=== PATIENT | male | born 1985 | race Caucasian/White ===

== ENCOUNTER 2019-11-25 17:23 | Emergency (ER) | payer BC, SELFPAY ==
[2019-11-25 17:29] VITALS: BP 134/71; PULSE 95; RESP 18; TEMP 37.7; O2SAT 98
--- NOTE | 2019-11-25 18:15 | ED.GENADULT ---
HPI - General Adult General Chief complaint: Skin/Abscess/Foreign Body Stated complaint: CHEMICAL MONTEIRO TO LEGS Time Seen by Provider: 11/25/19 18:11 Source: patient Mode of arrival: ambulatory Limitations: no limitations History of Present Illness HPI narrative: 34-year-old male patient [facility] with complaints of monteiro to bilateral calves. Patient states that Friday he was at work and working with concrete. Patient states that side of the concrete got on the tops of his boots and thinks it got into his shoe. Patient states that when he got home he noticed some monteiro to the legs from the chemicals. Patient states he has been using vinegar and water to clean the wounds. Patient states he has been keeping Vaseline on them and keeping them covered and wrapped with Sedrick wrap. Patient denies any numbness or tingling to the toes or feet. Denies any fevers. Patient states he has noticed a little bit of swelling to bilateral lower extremities. Related Data Allergies Allergy/AdvReac Type Severity Reaction Status Date / Time No Known Allergies Allergy Unverified 03/29/17 03:19 Review of Systems Review of Systems: Narrative: CONSTITUTIONAL: Denies fever, chills, or sweats. EYES: Denies visual changes, redness, or discharge. ENT: Denies rhinorrhea, congestion, sore throat, or otalgia. CARDIOVASCULAR: Denies chest pain, palpitations, or edema. RESPIRATORY: Denies cough or dyspnea. GASTROINTESTINAL: Denies abdominal pain, nausea, vomiting, or diarrhea. GENITOURINARY: Denies dysuria or hematuria. SKIN: Denies rash or itching. Positive mnoteiro to bilateral lower extremities MUSCULOSKELETAL: Denies back pain, joint pain, or myalgia. NEUROLOGIC: Denies headache, numbness, or weakness. PSYCHIATRIC: Denies anxiety or depression. PMFSH Social History Social History Alcohol intake: current Comments At the time of my signature I agree with nursing past medical history, surgical, social, and family history. There is no relevant family history pertinent to the presenting complaint. Exam Narrative: Exam Narrative: GENERAL: Well-appearing, well-nourished, and in no acute distress. HEAD: Normocephalic, atraumatic. EYES: PERRLA and EOMI. ENT: Nares clear, no rhinorrhea or epistaxis. Mucous membranes moist. NECK: Supple. No lymphadenopathy CHEST: Clear to auscultation. No respiratory distress. HEART: Regular rate and rhythm. No murmur heard. Normal peripheral pulses. ABDOMEN: Soft, nontender, nondistended, normal active bowel sounds. EXTREMITIES: Normal range of motion. No edema. SKIN: Warm, dry, no rash. Patient has superficial chemical monteiro noted to bilateral medial calves. The one on the right measuring approximately 10 cm in length. There is some green center to the area. The one on the right measuring approximately 12 cm in length with a green area in the center. No open areas or discharge noted. NEURO: No focal deficits. Alert and oriented x3. Course Vital Signs Vital signs: Vital Signs Temperature 37.7 C H 11/25/19 17:29 Pulse Rate 95 11/25/19 17:29 Respiratory Rate 18 11/25/19 17:29 Blood Pressure 134/71 11/25/19 17:29 Pulse Oximetry 98 11/25/19 17:29 Temperature 37.7 C H 11/25/19 17:29 Pulse Rate 95 11/25/19 17:29 Respiratory Rate 18 11/25/19 17:29 Blood Pressure 134/71 11/25/19 17:29 Pulse Oximetry 98 11/25/19 17:29 Vital signs reviewed. The patient has been informed that they may have pre-hypertension or Hypertension based on a BP reading in the department. I recommend that the patient call the primary care provider listed on their discharge instructions or a physician of their choice this week to arrange follow up for further evaluation of possible pre-hypertension or Hypertension Medical Decision Making Differential Diagnosis Differential Diagnosis: Differential diagnosis: Abscess, cellulitis, hidradenitis, lacer
[2019-11-25] MEDS: SILVER SULFADIAZINE 1% CR 50 GM JAR (*BKC) 1 APPLIC TOPICAL (18:28)
[2019-11-25 18:46] VITALS: BP 117/62; PULSE 86; RESP 16; TEMP 36.3; O2SAT 99
== END 2019-11-25 18:47 | disposition home or self-care (01) ==
PROVIDERS: Emergency Provider Nurse Practitioner Family
DX: T24.532A Corrosion of first degree of left lower leg, initial encounter (principal); T24.531A Corrosion of first degree of right lower leg, initial encounter; T32.0 Corrosions involving less than 10% of body surface; R03.0 Elevated blood-pressure reading, without diagnosis of hypertension; T65.891A Toxic effect of other specified substances, accidental (unintentional), initial encounter
CPT/HCPCS: 16000; 99283; A9270

== ENCOUNTER 2021-06-21 16:10 | Emergency (ER) | payer BC, SELFPAY ==
--- NOTE | ~2021-06-21 | XR_ITS ---
EXAMINATION: XR chest 2V DATE: 06/21/2021 16:25 INDICATION: Chest pain. Heart palpitations. Shortness of breath. TECHNIQUE: Frontal and lateral views of the chest were obtained. COMPARISON: CT abdomen and pelvis 03/29/2017 FINDINGS: There are mild airspace opacities in the lower lung zones. No pleural effusion or pneumotho rax. The heart size is normal. There is mild chronic anterior wedging of multiple vertebral bodies. IMPRESSION: 1. Mild airspace opacities in the lower lung zones, consistent with atelectasis versus pneumonia. Reviewed, dictated and finalized at location A. N [employer]
[2021-06-21 16:16] VITALS: BP 137/66; PULSE 98; RESP 18; TEMP 37.1; O2SAT 100
--- NOTE | 2021-06-21 16:16 | ECG_ITS ---
Measurements Intervals [place] Rate: 96 P: 66 TN: 138 QRS: 55 QRSD: 101 T: 61 QT: 334 QTc: 423 Interpretive Statements SINUS RHYTHM NORMAL ECG Electronically Signed On 06-21-2021 16:22:29 [facility] [employer] by Adam Tse D.O.
[2021-06-21 16:21] VITALS: PULSE 97
--- NOTE | 2021-06-21 16:39 | ED.CHESTPAIN ---
HPI - Chest Pain General Chief Complaint: Chest Pain Stated Complaint: chest pain, breathing probs. Time Seen by Provider: 06/21/21 16:16 Source: patient Mode of arrival: ambulatory Limitations: no limitations History of Present Illness HPI narrative: Patient is a 28-year-old male complaining of chest pain, tightness, left chest, 6 out of 10 accompanied by palpitations, shortness of breath and dizziness that started prior to arrival. Patient states that he is feeling anxious. Patient denies any abdominal pain, nausea, vomiting, diaphoresis, fever or chills Related Data Allergies Allergy/AdvReac Type Severity Reaction Status Date / Time No Known Allergies Allergy Unverified 06/21/21 16:20 Review of Systems Review of Systems: All systems reviewed & are unremarkable except as noted in HPI and below Constitutional: Constitutional: Denies body ache(s), Denies chills, Denies excessive sweating, Denies fatigue, Denies fever(s), Denies headache(s), Denies lethargy, Denies malaise, Denies weakness and Denies weight loss Eyes: Eyes: Denies blurry vision, Denies change in vision and Denies loss of vision ENT: Denies dizziness, Denies ear discharge, Denies headache(s), Denies lip swelling, Denies epistaxis, Denies nasal congestion, Denies neck pain, Denies throat swelling and Denies tongue swelling Cardiovascular: Cardiovascular: Denies chest pain with activity, Denies diaphoresis, Denies rapid heart rate, Denies edema, Denies irregular heart rhythm, Denies lightheadedness, Denies palpitations and Denies dyspnea on exertion Respiratory: Respiratory: Denies chest congestion, Denies cough, Denies hemoptysis and Denies dyspnea on exertion Gastrointestinal: Gastrointestinal: Denies abdominal pain, Denies melena, Denies hematochezia, Denies diarrhea, Denies vomiting and Denies hematemesis Musculoskeletal: Musculoskeletal: Denies abnormal gait, Denies deformity, Denies joint swelling, Denies limited range of motion, Denies neck pain and Denies numbness Neurologic: Denies Abnormal speech present, Denies abnormal gait, Denies confusion, Denies headache(s), Denies focal weakness, Denies loss of vision, Denies numbness, Denies Other visual disturbances, Denies Sensory deficit (Neuro) and Denies weakness Psychiatric: Psychiatric: Denies confusion, Denies depression, Denies auditory hallucinations, Denies homicidal ideation and Denies suicidal ideation Endocrine: Endocrine: Denies cold intolerance, Denies excessive sweating, Denies fatigue, Denies heat intolerance and Denies palpitations Hematologic/Lymphatic: Hematologic/Lymphatic: Denies easy bleeding and Denies easy bruising Allergic/Immunologic: Allergic/Immunologic: Denies lip swelling, Denies throat swelling and Denies tongue swelling [facility] Social History Social History Alcohol intake: current Comments Past medical history: None Family history: Negative for AR or coronary artery disease Social history: Non-smoker, occasional EtOH use, no drug use Exam Const: General: cooperative, healthy appearing, comfortable, no acute distress, well developed, alert and awake; No confusion Orientation/consciousness: oriented to person, oriented to place, oriented to time, patient oriented x3 and No confusion Limitations: no limitations HENMT: Head: normal to inspection, normocephalic and atraumatic Ears: hearing grossly normal bilaterally, TM normal on the right and TM normal on the left General nose exam: Normal external nose present, Normal nares present and No nasal discharge present Face and sinus: normal facial exam Mouth: Yes Normal oral and palatal mucosa present, Yes lip normal, Yes tongue normal and Yes oropharynx normal Throat: posterior oropharynx normal, tonsils normal and uvula midline Eyes: General: appearance normal, both eyes and all related structures Pupils: Equal, round and reactive pupils present EOM: EOMs intact bilaterally Ne
[2021-06-21 16:53] LABS: Basophils Absolute Auto 0.1 K/mm3 (0.0-0.1); Basophils Percent Auto 0.7 % (0.2-1.2); Eosinophils Absolute Auto 0.1 K/mm3 (0-0.3); Hematocrit 42.2 % (42.0-52.0); Hemoglobin 13.9 g/dL (14.0-18.0); Immature Granulocyte Absolute 0.03 K/mm3 (0.00-0.031); Immature Granulocyte Percent A 0.4 % (0-0.5); Lymphocytes Absolute Auto 0.25 K/mm3 (0.9-3.2); Lymphocytes Percent Auto 3.4 % (18.3-44.2); Mean Corpuscular HGB Conc 32.9 g/dl (32-36); Mean Corpuscular Hemoglobin 28.3 pg (26-34); Mean Corpuscular Volume 85.8 fl (80-100); Mean Platelet Volume 9.9 fl (7.4-10.4); Monocytes Percent Auto 13.5 % (2.6-8.5); Neutrophils Absolute Auto 5.9 K/mm3 (1.3-6.7); Platelet Count Result 196 k/mm3 (150-375); Red Blood Count 4.92 M/mm3 (4.6-6.20); Red Cell Distribution Width 13.2 % (11.5-14.5); White Blood Count 7.3 K/mm3 (4.5-10.0)
[2021-06-21] MEDS: ONDANSETRON INJ 4 MG/2 ML VIAL IV PUSH (16:55)
[2021-06-21 17:03] LABS: Alanine Aminotransferase 24 U/L (4-50); Albumin Level 4.8 g/dL (3.5-5.1); Alkaline Phosphatase 51 U/L (38-126); Anion Gap 11 mmol/L (8-16); Aspartate Amino Transferase 29 U/L (17-59); Bilirubin,Total 0.3 mg/dL (0.2-1.3); Blood Urea Nitrogen 13 mg/dL (9-20); Calcium 9.9 mg/dL (8.4-10.2); Carbon Dioxide 24 mmol/L (22-30); Chloride 103 mmol/L (98-107); Estimated CRCL calculation 101 ml/min; Estimated Glomerular Filt Rate > 60; Glucose 135 mg/dL (65-110); Lipase 238 U/L (23-300); Potassium 3.6 mmol/L (3.4-5.0); Sodium 138 mmol/L (137-145)
[2021-06-21 17:09] LABS: Prothrombin Time 13.4 Seconds (11.1-14.7)
[2021-06-21 17:10] LABS: Partial Thromboplastin Time 30.1 SECONDS (22.3-36.8)
[2021-06-21 17:12] LABS: D Dimer 0.28 ug/mL (<0.48)
[2021-06-21 17:15] LABS: Troponin I < 0.012 ng/mL (0.000-0.034)
[2021-06-21] MEDS: ASPIRIN 81 MG CHEWABLE TABLET 324 MG PO (17:49)
[2021-06-21 18:16] VITALS: BP 110/61; PULSE 99; RESP 16; O2SAT 99
[2021-06-21] MEDS: KETOROLAC 30 MG/ML VIAL (*BKC) IV PUSH (18:16)
[2021-06-21] MEDS: HYDROcodone/acetaminophen (*CRX) 5-325 MG TABLET 1 TAB PO (18:16)
[2021-06-21] MEDS: LORazepam (*CRX) 0.5 MG TABLET PO (18:33)
[2021-06-21 19:10] LABS: Add Urine Microscopic? YES; Appearance Urine Cloudy (Clear); Bacteria Urine Trace /hpf; Bilirubin Urine Negative (Negative); Blood Urine Negative (Negative); Color Urine Yellow (Yellow); Glucose Urine UA Negative (Negative); Ketones Urine Negative (Negative); Leukocyte Esterase Ur Negative LEU/UL (Negative); Mucus Urine Rare /lpf; Nitrate Urine Negative (Negative); Protein Urine Negative (Negative); Specific Grav Ur 1.021 (1.001-1.035); Squamous Epithelial Cell Urine Rare /hpf (Few); Urobilinogen Urine Negative mg/dL (<2.0)
[2021-06-21 19:58] LABS: Troponin I < 0.012 ng/mL (0.000-0.034)
[2021-06-21 20:10] VITALS: BP 129/84; PULSE 84; RESP 16; O2SAT 98
== END 2021-06-21 20:53 | disposition home or self-care (01) ==
PROVIDERS: Emergency Medicine; Emergency Provider Emergency Medicine
DX: R07.89 Other chest pain (principal)
CPT/HCPCS: 36415; 71046; 80053; 81001; 83690; 84484; 85025; 85380; 85610; 85730; 93005; 96374; 96375; 99284; A9270; J1885; J2405

== ENCOUNTER 2023-10-19 18:59 | Emergency (ER) | payer BC, SELFPAY ==
--- NOTE | ~2023-10-19 | CT_ITS ---
EXAMINATION: CTA chest PE abdomen pel DATE: 10/19/2023 19:55 INDICATION: Right-sided chest pain and abdominal pain TECHNIQUE: Computed tomography (CT) pulmonary angiogram of the chest was performed with 100 mL Omnipa que-350 intravenous contrast. Additional 3D reconstructions utilizing coronal maximum intensity proje ction (MIP) were performed. CT of the abdomen and pelvis was performed with intravenous contrast util izing the same contrast bolus following a short delay. Automated exposure control and iterative recon struction technique were employed. The dose-length product was 696.35 mGy-cm. COMPARISON: None FINDINGS: Chest: No pulmonary embolism. Lungs are clear with no pneumonia, pulmonary edema or other pulmonary infiltra pepper. No pleural effusion or pneumothorax. Heart size is normal. Thoracic aorta is normal in caliber w ith no dissection. Bilateral gynecomastia. Moderate thoracic spondylosis with anterior wedging and Sc hmorl's nodes involving multiple vertebral bodies in the mid to lower thoracic spine. Abdomen/pelvis: Numerous hypoenhancing nodules scattered throughout the liver suspicious for metastatic disease. Sple en, pancreas, bilateral adrenal glands and kidneys are normal. Bowels including the appendix are norm al. Bladder is normal. No free intraperitoneal gas or fluid. No pathologically enlarged abdominal or pelvic lymphadenopathy. Mild lumbar spondylosis. IMPRESSION: 1. No pulmonary embolism or other acute cardiopulmonary disease. 2. Numerous hypoenhancing masses scattered throughout the liver concerning for metastatic disease. Co nsider ultrasound-guided biopsy for pathologic correlation. Reviewed, dictated and finalized at location A. IMPRESSION: 1. No pulmonary embolism or other acute cardiopulmonary disease. 2. Numerous hypoenhancing masses scattered throughout the liver concerning for metastatic disease. Consider ultrasound-guided biopsy for pathologic correlatio n.
[2023-10-19 19:05] VITALS: BP 150/90; PULSE 74; RESP 18; TEMP 36.7; O2SAT 100
--- NOTE | 2023-10-19 19:10 | ECG_ITS ---
SEE SCANNED COPY FOR CONFIRMED REPORT MTDD
[2023-10-19 19:12] LABS: Basophils Absolute Auto 0.1 K/mm3 (0.0-0.1); Basophils Percent Auto 0.4 % (0.2-1.2); Eosinophils Absolute Auto 0.1 K/mm3 (0-0.3); Eosinophils Percent Auto 1.2 % (0-4.4); Hematocrit 42.3 % (42.0-52.0); Hemoglobin 13.9 g/dL (14.0-18.0); Immature Granulocyte Absolute 0.04 K/mm3 (0.00-0.031); Immature Granulocyte Percent A 0.3 % (0-0.5); Lymphocytes Absolute Auto 1.29 K/mm3 (0.9-3.2); Lymphocytes Percent Auto 11.2 % (18.3-44.2); Mean Corpuscular HGB Conc 32.9 g/dl (32-36); Mean Corpuscular Volume 88.1 fl (80-100); Mean Platelet Volume 9.6 fl (7.4-10.4); Monocytes Absolute Auto 1.5 K/mm3 (0.1-0.6); Monocytes Percent Auto 13.3 % (2.6-8.5); Neutrophils Absolute Auto 8.5 K/mm3 (1.3-6.7); Neutrophils Percent Auto 73.6 % (45.5-73.1); Platelet Count Result 314 k/mm3 (150-375); Red Cell Distribution Width 12.7 % (11.5-14.5); White Blood Count 11.5 K/mm3 (4.5-10.0)
[2023-10-19] MEDS: PANTOPRAZOLE SODIUM IV 40 MG VIAL IV PUSH (19:17)
[2023-10-19] MEDS: SODIUM CHLORIDE 0.9% IV 1,000 ML 999 ML IV CONT (19:19)
[2023-10-19] MEDS: ONDANSETRON INJ 4 MG/2 ML VIAL IV PUSH (19:19)
[2023-10-19] MEDS: MORPHINE SULFATE (*CRX) 4 MG/ML INJ IV PUSH ×2 (19:19→22:19)
--- NOTE | 2023-10-19 19:19 | ED.GENADULT ---
HPI - General Adult General Chief complaint: Abdominal Pain Stated complaint: reflux issues Time Seen by Provider: 10/19/23 19:03 History of Present Illness HPI narrative: The patient is a 38-year-old gentleman who presents emergency department with chief complaint of right sided abdominal pain/low chest pain. Patient reports for the last couple weeks has been having pain on the right side does report that it is worse with inspiration patient states he also has been taking multiple medications for reflux as he has had heartburn with that as well patient reports symptoms are worse with laying flat worse with movement. Patient reports no prior cardiac history reports that he has had no intra-abdominal surgeries Related Data Allergies Allergy/AdvReac Type Severity Reaction Status Date / Time No Known Allergies Allergy Unverified 06/21/21 16:20 Review of Systems Review of Systems: A 10 system review of systems was completed on the patient and is negative except for what is stated in the HPI. Nursing and ancillary documentation was reviewed. PMFSH Social History Social History Alcohol intake: current Exam Narrative: GENERAL: Well-appearing, well-nourished, and in no acute distress. HEAD: Normocephalic, atraumatic. EYES: PERRLA and EOMI. ENT: Nares clear, no rhinorrhea or epistaxis. Mucous membranes moist. NECK: Supple. CHEST: Clear to auscultation. No respiratory distress. HEART: Regular rate and rhythm. No murmur heard. Normal peripheral pulses. ABDOMEN: Soft, tenderness to palpation right upper quadrant, nondistended, normal active bowel sounds. EXTREMITIES: Normal range of motion. No edema. SKIN: Warm, dry, no rash. NEURO: No focal deficits. Alert and oriented x3. PSYCH: Normal mood and affect. Course Vital Signs Vital signs: Vital Signs Temperature 36.7 C 10/19/23 19:05 Pulse Rate 74 10/19/23 19:05 Respiratory Rate 18 10/19/23 19:05 Blood Pressure 150/90 H 10/19/23 19:05 Pulse Oximetry 100 10/19/23 19:05 Oxygen Delivery Room Air 10/19/23 19:05 Temperature 36.7 C 10/19/23 19:05 Pulse Rate 54 L 10/19/23 22:03 Respiratory Rate 15 10/19/23 22:03 Blood Pressure 158/90 H 10/19/23 22:03 Pulse Oximetry 99 10/19/23 22:03 Oxygen Delivery Room Air 10/19/23 19:05 Medical Decision Making MDM Narrative Medical decision making narrative: Differential diagnosis includes cholecystitis, pulmonary embolism, intra-abdominal infection, pancreatitis CT scan of the abdomen pelvis showed evidence of multiple hypodense lesions in liver concerning for metastatic disease. CTA chest showed no evidence of pulmonary embolism Laboratory studies are otherwise within normal limits with the exception of slightly elevated liver enzymes but a normal bilirubin. The case was discussed with our local hospitalist who recommended since we do not have oncology coverage this weekend. Discussed having the [facility] tertiary care facility the case was discussed with Vijaya who recommended patient go to either several ERs for any dyspnea GI hepatology availability. Her the case was discussed with [facility] currently they have on weight meds see and he notes they spoke with [facility], who would be able to do a biopsy as an outpatient and arrange follow-up the patient's information was faxed to the [facility] for tonya and additionally given know their contact information. Vital Signs Vital Signs: Vital Signs Temperature 36.7 C 10/19/23 19:05 Pulse Rate 74 10/19/23 19:05 Respiratory Rate 18 10/19/23 19:05 Blood Pressure 150/90 H 10/19/23 19:05 Pulse Oximetry 100 10/19/23 19:05 Oxygen Delivery Room Air 10/19/23 19:05 Temperature 36.7 C 10/19/23 19:05 Pulse Rate 54 L 10/19/23 22:03 Respiratory Rate 15 10/19/23 22:03 Blood Pressure 158/90 H
[2023-10-19 19:22] LABS: Alanine Aminotransferase 104 U/L (6-50); Albumin Level 4.9 g/dL (3.5-5.1); Alkaline Phosphatase 236 U/L (38-126); Anion Gap 6 mmol/L (4-12); Aspartate Amino Transferase 72 U/L (17-59); Bilirubin,Total 0.7 mg/dL (0.2-1.3); Blood Urea Nitrogen 25 mg/dL (9-20); Calcium 12.3 mg/dL (8.4-10.2); Carbon Dioxide 27 mmol/L (22-30); Chloride 106 mmol/L (98-107); Estimated CRCL calculation 110 ml/min; Estimated Glomerular Filt Rate > 60; Glucose 119 mg/dL (65-110); Lipase 143 U/L (23-300); Potassium 4.3 mmol/L (3.4-5.0); Sodium 139 mmol/L (137-145)
[2023-10-19 19:51] LABS: Prothrombin Time 13.4 Seconds (11.1-14.7)
[2023-10-19 19:52] LABS: Lactic Acid Reflex 0.7 mmol/L (0.7-2.0); Partial Thromboplastin Time 39.9 Seconds (22.3-36.8)
[2023-10-19 20:04] LABS: NT Pro B Type Natriuretic Pept 74 pg/mL (19.9-100); Troponin I < 0.012 ng/mL (0.000-0.034)
[2023-10-19 20:12] LABS: Bacteria Urine None Seen /hpf; Non Pathogenic Casts 0-2; RBC Urine 0-2 /hpf (0-2); Squamous Epithelial Cell Urine None Seen /hpf (Few); WBC Urine 0-5 /hpf (0-3)
[2023-10-19 20:23] LABS: Appearance Urine Clear (Clear); Bilirubin Urine Negative (Negative); Blood Urine Negative (Negative); Color Urine Yellow (Yellow); Glucose Urine UA Negative (Negative); Ketones Urine Negative (Negative); Leukocyte Esterase Ur Negative LEU/UL (Negative); Nitrate Urine Negative (Negative); Protein Urine Negative (Negative); Specific Grav Ur 1.028 (1.001-1.035); Urobilinogen Urine 0.2 mg/dL (<2.0); pH Urine 5.5 (5.0-9.0)
[2023-10-19 20:25] LABS: Add Urine Microscopic? NO
[2023-10-19 22:03] VITALS: BP 158/90; PULSE 54; RESP 15; O2SAT 99
--- NOTE | 2023-10-19 22:04 | ECG_ITS ---
SEE SCANNED COPY FOR CONFIRMED REPORT MTDD
[2023-10-19 22:36] LABS: Troponin I < 0.012 ng/mL (0.000-0.034)
[2023-10-19] MEDS: HYDROcodone/acetaminophen (*CRX) 10-325 MG TABLET 1 TAB PO (23:22)
[2023-10-19 23:23] VITALS: BP 128/72; PULSE 59; RESP 15; O2SAT 97
== END 2023-10-19 23:24 | disposition home or self-care (01) ==
PROVIDERS: Emergency Medicine; Emergency Provider Emergency Medicine
DX: R16.0 Hepatomegaly, not elsewhere classified (principal); R00.1 Bradycardia, unspecified
CPT/HCPCS: 36415; 71275; 74177; 80053; 81003; 83605; 83690; 83880; 84484; 85025; 85610; 85730; 93005; 96361; 96374; 96375; 96376; 99284; A9270; C9113; J2270; J2405; J7030; Q9967